=== PATIENT | male | born 1935 | race Caucasian/White ===

== ENCOUNTER → 2016-04-29 | Outpatient (CLI) | payer OTHER, MEDICARE ==
--- NOTE | 2016-04-29 15:57 | NM ---
Nuclear Medicine Whole Body Bone Scan Indication: 80-year-old man with history of prostate adenocarcinoma. Rising PSA value. Comparison: Left rib series performed the same day (April 29, 2016) two-view chest dated March 302013 and CT chest dated May 01, 2011. Technique: 22 mCi technetium 99m MDP were injected intravenously. Delayed images of the skeleton we re obtained in anterior and posterior projections. Findings: Focal uptake in the left lateral seventh rib corresponds to a subacute healing fracture on the rib series performed today. No focal lesions suspicious for metastatic disease to the axial or ap pendicular skeleton. Mild degenerative uptake is present in bilateral shoulder girdles, bilateral kne es, right ankle at the site of hardware, and left foot. Normal uptake is present in the genitourinary tract. Impression: 1. No scintigraphic evidence of bone metastasis to the axial or appendicular skeleton. 2. Subacute left seventh rib fracture.
--- NOTE | 2016-04-29 16:06 | DX ---
Left rib series - 4 views - April 29, 2016 Indication: Left rib uptake on bone scan. History of prostate cancer.. Technique: PA view and 3 oblique views of the left hemithorax. Findings: A subacute left seventh rib fracture, in the midaxillary line has healing callus. No lytic or blastic bone lesions. Bones are otherwise normal. Impression: Benign subacute healing left seventh rib fracture corresponds to uptake on bone scan.
== END ==
LOC: FIMAGING 09:34
PROVIDERS: ATTEND Specialist
DX: M84.48XA Pathological fracture, other site, initial encounter for fracture (principal); R97.21 Rising PSA following treatment for malignant neoplasm of prostate; Z85.46 Personal history of malignant neoplasm of prostate
CPT/HCPCS: 71101; 78306; A9503

== ENCOUNTER → 2017-07-28 | Outpatient (CLI) | payer OTHER, MEDICARE | LOC: BHFA 09:00 | PROVIDERS: ATTEND Internal Medicine Cardiovascular Disease | DX: I48.91 Unspecified atrial fibrillation (principal); I25.10 Atherosclerotic heart disease of native coronary artery without angina pectoris; R06.02 Shortness of breath | CPT/HCPCS: 78452; 93017; A9500; J2785 ==